=== PATIENT | female | born 1950 | race Caucasian/White ===

== ENCOUNTER → 2016-06-28 | Outpatient (CLI) | payer BC ==
--- NOTE | ~2016-06-28 | ST ---
Unit #: [id number] #: [id number] Patient: ADILENE CLIFTON [id number] [facility]. [address] [address] [id number] O MR#: [id number] NAME: ADILENE CLIFTON : 1950 SEX: F STUDY DATE/TIME: 06/28/2016 UNIT: [facility] ROOM: STUDY DESCRIPTION: Attending Physician: Ananda Centeno Aprn Referring Physician: Ananda Centeno Aprn Primary Care Physician: Corinna Lilly D.O. CARDIOLOGY REPORT EXAM Exercise Cardiolite stress test. FINDINGS Baseline EKG: Normal sinus rhythm with ventricular rate 75 beats per minute, questionable Q waves in V1 and V2 - septal leads, poor R-wave progression, nondiagnostic Q waves in inferior leads, left atrial abnormality. PROCEDURE The patient walked on the treadmill for 8 minutes utilizing Kade protocol, achieving a workload of 10.1 METs. Next, 87% of maximum target heart rate achieved at 137 beats per minute with a maximum blood pressure response of 160/90 mmHg. EKG during the test was equivocal to baseline. No acute ischemic changes. Did note an occasional premature and ventricular complex. IMPRESSION 1. Functional class III with a workload of 10.1 METs. 2. The patient walked for 8 minutes, obtaining 87% of maximum target heart rate at 137 beats per minute with a maximum blood pressure of 160/90 mmHg. 3. EKG during the test was equivocal to baseline. No acute ischemic changes. 4. It was noted that patient had occasional premature ventricular complex. 5. The patient had no complaints of chest pain, palpitations, or dizziness. Had increased shortness of breath and fatigueness that resolved in recovery phase. 6. Cardiolite was injected at maximum target heart rate. Radionuclide tests pending. Please correlate with nuclear images. Dictated by... Stacey Escalante A.P.R.NLivia for Janes Goodrich TD: 06/28/2016 08:59 JOB #: [id number] Unit #: [id number] #: [id number] Patient: ADILENE CLIFTON CARDIOLOGY REPORT Page 1 of 1 X Stacey Escalante APRN CARDIOLOGY REPORT
--- NOTE | ~2016-06-28 | TH ---
Unit #: [id number] #: [id number] Patient: ADILENE CLIFTON [id number] [facility]. [address] [address] [id number] O MR#: [id number] NAME: ADILENE CLIFTON : 1950 SEX: F STUDY DATE/TIME: 06/28/2016 UNIT: CN ROOM: STUDY DESCRIPTION: Exercise stress test Attending Physician: Ananda Centeno Aprn Referring Physician: Ananda Centeno Aprn Primary Care Physician: Corinna Lilly D.O. CARDIOLOGY REPORT PROCEDURE PERFORMED Exercise Cardiolite stress test - Nuclear portion. PROCEDURE Using technetium 99m-labeled Cardiolite, rest and stress SPECT images were obtained. Multiple SPECT images were obtained in various views, including horizontal and vertical long axis and short axis views of the left ventricle. Images were obtained by gated SPECT method. Patient was administered 10.84 mCi of Cardiolite at rest. Patient was administered 34.4 mCi of Cardiolite at peak exercise. Total exercise time is 8 minutes. On the stress images, there is normal perfusion noted. The rest images show normal perfusion. Comparing the rest and stress images, there is no stress-induced ischemia noted. The left ventricular ejection fraction is calculated to be 76%. There is no focal wall motion abnormality seen. CONCLUSION 1. No stress-induced ischemia noted. 2. The left ventricular ejection fraction is calculated to be 76%. 3. There is no focal wall motion abnormality seen. 4. Normal exercise Cardiolite stress test. Dictated by... Janes Goodrich/kyle TD: 06/28/2016 14:51 JOB #: [id number] CARDIOLOGY REPORT Page 1 of 1 X Nabila Hercules MD <ELECTRONICALLY SIGNED> 09/21/16 1429 CARDIOLOGY REPORT
== END | disposition home or self-care (01) ==
LOC: CNUC 06:34
DX: I25.10 Atherosclerotic heart disease of native coronary artery without angina pectoris (principal); F17.200 Nicotine dependence, unspecified, uncomplicated; N28.9 Disorder of kidney and ureter, unspecified
CPT/HCPCS: 78452; 93017; A9500

== ENCOUNTER → 2016-07-11 | Outpatient (CLI) | payer BC ==
--- NOTE | ~2016-07-11 | US77 ---
[facility] A Service of [facility] RADIOLOGY TEXT RESULTS PATIENT: ADILENE CLIFTON LOCATION: [facility] : 52 UNIT #: [id number] AGE: [address]: ANANDA CENTENO SEX: F ORDER DR: [id number] [facility] [address]. [place], [place] [address] [id number] O MR#: [id number] Acc #: [id number] NAME: ADILENE CLIFTON : 1950 SEX: F STUDY DATE/TIME: 07/11/2016 12:57 UNIT: US ROOM: STUDY DESCRIPTION: US Kidney Bilateral Complete Attending Physician: Ananda Centeno Aprn Referring Physician: Ananda Centeno Aprn Ordering Physician: [place] Not Listed Primary Care Physician: Corinna Lilly D.O. MEDICAL IMAGING REPORT This report is preliminary unless electronic signature is present EXAM renal ultrasound INDICATIONS Indeterminate right renal lesion on previous CT. Observation for renal mass versus cyst. PROCEDURE -scale and Doppler imaging of the kidneys and bladder. COMPARISON Lung cancer screening CT from 01/05/2016. FINDINGS Right kidney measures 10.4 cm in length. There is a 1.9-cm cyst in the upper pole of the right kidney. This correlates with the area of abnormality on the previous CT. Left kidney is not well seen on this study. No definite abnormality. Unremarkable bladder. IMPRESSION 1.9-cm cyst in the right kidney corresponding to the region of abnormality on the previous CT. No definite solid renal mass. Dictated by... Carter eBnavides M.D. THIS IS AN ELECTRONICALLY VERIFIED REPORT Carter Benavides M.D. at 07/12/2016 7:02 AM Jeane TD: 07/11/2016 18:52 [facility] A Service of [facility] RADIOLOGY TEXT RESULTS PATIENT: ADILENE CLIFTON LOCATION: [facility] : 52 UNIT #: [id number] AGE: [address]: ANANDA CENTENO SEX: F ORDER DR: ANTONI #: [id number] MEDICAL IMAGING REPORT Page 1 of 1 COPY
== END | disposition home or self-care (01) ==
LOC: CGUS 06-27 13:30
DX: N28.9 Disorder of kidney and ureter, unspecified (principal); N28.1 Cyst of kidney, acquired
CPT/HCPCS: 76770

== ENCOUNTER → 2016-07-11 | Outpatient (CLI) | payer BC ==
--- NOTE | ~2016-07-11 | CT57 ---
[facility] A Service of [facility] RADIOLOGY TEXT RESULTS PATIENT: ADILENE CLIFTON LOCATION: [facility] : 52 UNIT #: [id number] AGE: [address]: Corinna Lilly DO SEX: F ORDER DR: [id number] [place] [id number] [facility]. [place], [place] [address] [id number] O MR#: [id number] Acc #: [id number] NAME: ADILENE CLIFTON : 1950 SEX: F STUDY DATE/TIME: 07/11/2016 13:30 UNIT: [facility] ROOM: STUDY DESCRIPTION: CT Chest Wo Cont Attending Physician: Corinna Lilly D.O. Referring Physician: Corinna Lilly D.O. Ordering Physician: Corinna Lilly D.O. Primary Care Physician: Corinna Lilly D.O. MEDICAL IMAGING REPORT This report is preliminary unless electronic signature is present EXAM CT of the chest without contrast. INDICATION Pulmonary nodule. These were initially identified on a lung cancer screening examination which was performed January 05, 2016. There is a 3-5 mm nodule identified within the right lower lobe, as well as a 3 mm nodule seen within the left lower lobe. TECHNIQUE Axial CT images were obtained from the thoracic inlet through the dome of the diaphragm. No intravenous contrast material was administered. This CT exam was performed with one or more of the following radiation dose reduction techniques: automatic exposure control, adjustment of mA and/or kV according to patient size, and iterative reconstruction. FINDINGS 5-6 mm noncalcified pulmonary nodule is seen within the right lower lobe. This is unchanged when compared to the prior exam when allowance is made to differences in measurement technique. Patient also had a 3 mm nodule within the left lower lobe which is also unchanged when compared to the prior study, background emphysematous changes are seen. Calcified granuloma is seen within the right upper lobe. There is a 4-5 mm nodule identified within the right middle lobe. It was also present on a prior study and appears unchanged. The thyroid gland, trachea and esophagus appear unremarkable. There is no pleural or pericardial effusion. Patient has shotty mediastinal lymph nodes, probably not significantly changed when compared to the prior study. There are coronary artery calcifications. Thoracic aorta measures within normal size limits. There is again noted a hyperdense lesion within the superior pole of the STS. [facility] A Service of [facility] RADIOLOGY TEXT RESULTS PATIENT: ADILENE CLIFTON LOCATION: [facility] : 52 UNIT #: [id number] AGE: [address]: Corinna Lilly DO SEX: F ORDER DR: right kidney. I suspect this is probably not significantly changed in appearance when compared to the prior examination and was previously assessed with renal ultrasound and was found to be a cyst. I do not see any acute abnormalities within the upper abdomen. There is some colonic diverticulosis without any evidence of diverticulitis. Patient has a small fat-containing umbilical hernia. Review of bony windows does not demonstrate any aggressive osseous abnormalities. IMPRESSION 1. The patient is again noted to have scattered noncalcified pulmonary nodules throughout the lungs. These are unchanged when compared to the prior CT from January of 2016. They are favored to be benign. However, a followup CT in January 2018 is recommended to document 2 full years of stability. 2. The patient has a right renal hyperdense cyst, and is probably not significantly changed in size or appearance when compared to the prior CT from January 06, 2016, it was evaluated with renal ultrasound, and was felt to represent a cyst. Dictated by... Donna Olguin M.D. THIS IS AN ELECTRONICALLY VERIFIED REPORT Donna Olguin M.D. at 07/12/2016 10:05 AM SUKUMAR/neil TD: 07/11/2016 23:13 JOB #: [id number] MEDICAL IMAGING REPORT Page 1 of 1 COPY
== END | disposition home or self-care (01) ==
LOC: CCAT 12:24
DX: R91.1 Solitary pulmonary nodule (principal); R91.8 Other nonspecific abnormal finding of lung field; N28.1 Cyst of kidney, acquired
CPT/HCPCS: 71250

== ENCOUNTER → 2016-09-06 | Outpatient (CLI) | payer BC ==
--- NOTE | ~2016-09-06 | MY29 ---
[facility] A Service of [facility] RADIOLOGY TEXT RESULTS PATIENT: ADILENE CLIFTON LOCATION: [facility] : 52 UNIT #: [id number] AGE: [address]: Corinna Lilly DO SEX: F ORDER DR: [id number] [facility] [address] [facility] [place], [place] [address] [id number] O MR#: [id number] Acc #: [id number] NAME: ADILENE CLIFTON : 1950 SEX: F STUDY DATE/TIME: 09/06/2016 7:35 UNIT: [facility] ROOM: STUDY DESCRIPTION: MY VIDA SCREENING W/ CAD BILAT Attending Physician: Corinna Lilly D.O. Referring Physician: Corinna Lilly D.O. Ordering Physician: Corinna Lilly D.O. Primary Care Physician: Corinna Lilly D.O. MEDICAL IMAGING REPORT This report is preliminary unless electronic signature is present EXAM Digital screening mammogram, 09/06/2016, [facility]. HISTORY 65-year-old woman no risk elevation. Annual screen. COMPARISON Mammograms date to 12/21/2010 with most recent 07/21/2015. TECHNIQUE Digital imaging of each breast was completed utilizing screening protocol. Review includes FDA-approved CAD device. FINDINGS Breast parenchyma is extremely dense with homogeneous nodular dominance projecting upper outer quadrants of each breast. Microcalcifications with benign characteristics scattered bilaterally. I see no suspicious mass characteristics. There are no interval occurring microcalcifications and no suspicious architectural deformity. IMPRESSION Stable benign mammogram with very dense breast parenchyma again noted. Annual screening recommended. Patients over the age of 40 are entered into a reminder system with target due date for the next mammogram. A result letter will also be sent to the patient. BIRADS: 2 Benign finding. Dictated by... [facility] A Service of [facility] RADIOLOGY TEXT RESULTS PATIENT: ADILENE CLIFTON LOCATION: [facility] : 52 UNIT #: [id number] AGE: [address]: Corinna Lilly DO SEX: F ORDER DR: Pako Cotter M.D. THIS IS AN ELECTRONICALLY VERIFIED REPORT Pako Cotter M.D. at 09/06/2016 12:09 PM Josselyn TD: 09/06/2016 10:27 JOB #: [id number] MEDICAL IMAGING REPORT Page 1 of 1 COPY
== END | disposition home or self-care (01) ==
LOC: CWCC 07:11
DX: Z12.31 Encounter for screening mammogram for malignant neoplasm of breast (principal); R92.8 Other abnormal and inconclusive findings on diagnostic imaging of breast
CPT/HCPCS: G0202